=== PATIENT | male | born 1975 | race Caucasian/White ===

== ENCOUNTER 2022-07-26 12:28 | Emergency (ER) | payer BC ==
[~2022-07-26] VITALS: Ht 177.8 cm; Wt 100.0 kg
[2022-07-26] MEDS ORDERED: CEPHALEXIN500 M1 PO (14:44)
[2022-07-26 15:20] VITALS: BP 132/102
== END 2022-07-26 15:10 | disposition home or self-care (01) ==
LOC: ED 12:28
DX: S71.111A Laceration without foreign body, right thigh, initial encounter (principal); Z28.310 Unvaccinated for COVID-19; X99.1XXA Assault by knife, initial encounter